=== PATIENT | female | born 1990 | race Caucasian/White ===

== ENCOUNTER 2017-04-19 06:18 | Inpatient (IN) | payer BC ==
[2017-04-19] MEDS ORDERED: Sodium Chloride 0.9% 10 ML Syringe FLUSH PRN (20:07)
[2017-04-19] MEDS ORDERED: Oxytocin/Lactated Ringers 10 UNIT/1,000 ML BAG IV SCH (20:15)
[2017-04-19] MEDS: Lactated Ringers 1,000 ML IV SCH ×2 (20:56→22:25)
[2017-04-19] MEDS ORDERED: ePHEDrine 50 MG/ML SDV IVPUSH PRN (21:55)
[2017-04-19] MEDS ORDERED: diphenhydrAMINE 50 MG/ML SDV IVPUSH PRN (21:55)
[2017-04-19] MEDS ORDERED: fentaNYL 100 MCG/2 ML SDV EPIDUR PRN (21:55)
[2017-04-19] MEDS: Bupivacaine/fentaNYL/NS 100 ML Bag EPIDUR SCH (22:36)
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
[2017-04-20] MEDS: Bupivacaine/fentaNYL/NS 100 ML Bag EPIDUR SCH (05:33)
[2017-04-20] MEDS: Lactated Ringers 1,000 ML IV SCH (05:46)
--- NOTE | 2017-04-20 06:38 | PCM.SN ---
- Free Text/Narrative Note: Tanya is a 26-year-old 2 now para 1102 female who was admitted last evening for induction of labor but was rebecca already at that time. Augmentation was performed with artificial rupture membranes. She progressed slowly throughout the night and became completely dilated at approximately 0300 hrs. on 04/20/2017. Patient pushed for approximately 2 hours and 15 minutes and delivered a viable's, lewis, female at 0618 hrs. scores were 5 and 8. Length was 21.0 inches. Weight was 3780 g (8 pounds 5.3 ounces). Cord was clamped 2 and cut by the patient's mother. Baby was placed in the warmer and was evaluated. The cord was noted to have 3 vessels and cord blood was obtained The placenta delivered in a Mckinnon presentation at 0622 hrs., appeared intact and complete. Pitocin had been started IV after delivery of the baby to facilitate increase in uterine tone and decrease bleeding. Assessment blood loss was approximately 200 mL. Condition: Good
[2017-04-20] MEDS ORDERED: Benzocaine/Menthol 20%-0.5% Spray 56 GM Canister TOP PRN (07:17)
[2017-04-20] MEDS ORDERED: Witch Hazel Medicated Pads 100/Jar TOP PRN (07:17)
[2017-04-20] MEDS ORDERED: Lanolin 100% Cream 7 GM Tube TOP PRN (07:17)
[2017-04-20] MEDS ORDERED: Acetaminophen 325 MG Tab PO PRN (07:17)
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
[2017-04-20] MEDS: Prenatal Multivitamin with Calcium/Folic Acid/Iron Tab PO SCH ×2 (10:17→10:39)
[2017-04-20] MEDS: Ibuprofen 600 MG Tab PO PRN ×3 (10:17→22:17)
[2017-04-20] MEDS: Docusate Sodium 100 MG Cap PO PRN ×2 (10:19→22:17)
[2017-04-20] MEDS: Benzocaine/Cetylpyridinium/Menthol Lozenge MUCMEM PRN ×3 (12:43→22:19)
--- NOTE | 2017-04-20 16:51 | PCM48HPAN ---
Post Anesthesia Note - EVALUATION WITHIN 48HRS OF ANESTHETIC Vital Signs in Normal Range: Yes Patient Participated in Evaluation: Yes Respiratory Function Stable: Yes Airway Patent: Yes Cardiovascular Function Stable: Yes Hydration Status Stable: Yes Pain Control Satisfactory: Yes Nausea and Vomiting Control Satisfactory: Yes Mental Status Recovered: Yes - COMMENTS/OBSERVATIONS Free Text/Narrative:: Patient denied any headaches or residual numbness or tingling to lower extremities. However, the patient did complain of back pain at the insertion site. instructed patient that this may take up to 2 months for it to resolve but usually is gone in about a week. Patient stated she had this same problem about a 6 years ago and it took about a year for the back pain to resolve. Other than that, patient had no other complaints.
[2017-04-20] MEDS ORDERED: Bupivacaine 0.25% 10 ML SDV ONE (22:22)
[2017-04-21] MEDS: Prenatal Multivitamin with Calcium/Folic Acid/Iron Tab PO SCH (11:51)
[2017-04-21] MEDS: Ibuprofen 600 MG Tab PO PRN ×2 (13:03→20:11)
--- NOTE | 2017-04-21 13:59 | PCM.SN ---
- Free Text/Narrative Note: Note: Subjective: - Normal amount of lochia - Actively walking, voiding, and breast feeding Objective: - VS: T 97.5, BP 111/59, P 98, O2 100% - Skin: pale, dry - Abdomen: uterus at umbilicus, firm and nontender - Extremities: nontender, minimal edema - Labs: significant for HGB 7.2 (down from 8.5) Assessment: - 26-year-old, now P0102, s/p vaginal delivery who has a low HGB but is otherwise doing well. Plan: - Routine care - Begin ferrous sulfate tablets - Plan to stay overnight
[2017-04-21] MEDS ORDERED: Pneumococcal Polyvalent-23 Vaccine 0.5 ML SDV IM ONE (14:41)
[2017-04-21] MEDS: Docusate Sodium 100 MG Cap PO PRN (20:11)
[2017-04-21] MEDS: Benzocaine/Cetylpyridinium/Menthol Lozenge MUCMEM PRN (20:14)
[2017-04-22 04:28] VITALS: BP 119/87
--- NOTE | 2017-04-22 05:29 | PCM.DCSUM1 ---
Discharge Summary - Hospital Course Free Text/Narrative:: Tanya is a 26-year-old 2 now para 1102 female who was admitted on 04/19/2017 for induction of labor but was rebecca already at that time. Augmentation was performed with artificial rupture membranes. She progressed slowly throughout the night and became completely dilated at approximately 0300 hrs. on 04/20/2017. Patient pushed for approximately 2 hours and 15 minutes and delivered a viable's, lewis, female at 0618 hrs. scores were 5 and 8. Length was 21.0 inches. Weight was 3780 g (8 pounds 5.3 ounces). Cord was clamped 2 and cut by the patient's mother. Baby was placed in the warmer and was evaluated. The cord was noted to have 3 vessels and cord blood was obtained The placenta delivered in a Mckinnon presentation at 0622 hrs., appeared intact and complete. Pitocin had been started IV after delivery of the baby to facilitate increase in uterine tone and decrease bleeding. Assessment blood loss was approximately 200 mL. patient has done very well. Hemoglobin pre-labor was found to be 8.8 and dropped to 7.2 after delivery. She is doing well with this however she is ambulating well, she is able take care of her baby without concerns. She is nursing without problems. Her flows minimal and her discomfort is manageable. The patient does have some concerns about depression/anxiety and would like to go back on her Prozac as she had been on prior to . She has some of this left and would be interested in going on the same dose which is 20 mg per day. She is given permission to do so. Discharge instructions given. - Discharge Data Discharge Date: 04/22/17 Discharge Disposition: Home, Self-Care 01 Condition: Good - Patient Instructions Diet: Regular Diet as Tolerated (Nursing diet was increased calories and calcium as recommended) Activity: As Tolerated (No intercourse or tampons until bleeding resolves) Driving: Do Not Drive (2 days then only if she feels safe doing so.) Showering/Bathing: May Shower Notify Provider of: Fever, Increased Pain, Swelling and Redness, Nausea and/or Vomiting - Discharge Plan Prescriptions/Med Rec: FLUoxetine [PROzac] 20 mg PO BEDTIME #30 cap Home Medications: Home Meds Melatonin 04/19/17 [History] PNV95/Ferrous Fumarate/FA [ Tablet] 04/19/17 [History] FLUoxetine [PROzac] 20 mg PO BEDTIME #30 cap 04/22/17 [Rx] Ibuprofen [IJD: Ibuprofen] 600 mg PO Q4H PRN #30 tablet 04/22/17 [Rx] Patient Handouts: Smoking Cessation, Tips for Success, [id number], Smoking Hazards Referrals: Eddie Bridges MD [Physician] - (Return to clinic-Dr. Bridges-[facility]) - Discharge Summary/Plan Comment DC Time >30 min.: No Discharge Summary/Plan Comment: Discharge instruction: 1. Discharge home 2. Regular, high fiber, nursing diet with increase calories and calcium as directed 3. Activity and follow-up discussed in detail with patient 4. Precautions given concern increased pain, bleeding, temperature, signs/ symptoms of DVT/PE, signs and symptoms of anemia. 5. Medications per home medication was printed, discussed with them given to patient. 6. Return to clinic-Dr. Bridges-6 weeks-[facility]. Diagnosis: 1. 38 week intrauterine -delivered 2. Anemia secondary to and blood loss at time of delivery Condition: Good - Patient Data Vitals - Most Recent: Last Vital Signs Temp 36.7 C 04/22/17 03:32 Pulse 111 H 04/22/17 03:32 Resp 16 04/21/17 19:52 BP 119/87 04/22/17 03:32 Pulse Ox 99 04/22/17 03:32 Weight - Most Recent: 88.314 kg I&O - Last 24 hours: Intake & Output 04/21/17 04/21/17 04/22/17 14:59 22:59 06:59 Intake Total 240 Balance 240 Lab Results - Last 24 hrs: Laboratory Results - last 24 hr 04/21/17 Range/Units 06:03 WBC 11.35 H (3.98-10.04) K/mm3 RBC 3.49 L (3.98-5.22) M/mm3 Hgb 7.2 L* (11.2-15.7) gm/L Hct 24.9 L (34.1-44.9) % MCV 71.3 L (79.4-94.8) fl MCH 20.6 L (25.6-32.2) pg MCHC 28.9 L (32.2-35.5) g/dl RDW Std Deviation 42.9 (36.4-46.3) fL Plt Count 229 (182-369) K/mm3 MPV 10.0 (9.4-12.3) fl Med Orders - Current: Current Medications Acetaminophen (Tylenol) 650 mg PO Q4H PRN PRN Reason: mild pain or fever Benzocaine/Menthol (Dermoplast Pain Relief [place]) 0 gm TOP ASDIRECTED PRN PRN Reason: Perineal Comfort Measure Last Admin: 04/20/17 10:16 Dose: 1 can Benzocaine/Menthol (Cepacol Sore Throat) 1 lozenge MUCMEM Q2HR PRN PRN Reason: Cough Last Admin: 04/21/17 20:14 Dose: 1 lozenge Docusate Sodium (Colace) 100 mg PO BID PRN PRN Reason: Constipation Last Admin: 04/21/17 20:11 Dose: 100 mg Emollient Ointment (Lansinoh Hpa) 0 gm TOP ASDIRECTED PRN PRN Reason: Sore Nipples Last Admin: 04/20/17 12:47 Dose: 1 tube Ibuprofen (Motrin) 600 mg PO Q4H PRN PRN Reason: Mild pain or fever Last Admin: 04/21/17 20:11 Dose: 600 mg Prenat Multivit/[place]/Iron/Folic Ac ( Plus Iron) 1 each PO DAILY PACO Last Admin: 04/21/17 11:51 Dose: Not Given Vicki Scarlet (Tucks) 1 pad TOP ASDIRECTED PRN PRN Reason: Hemorrhoid pain Last Admin: 04/20/17 10:16 Dose: 1 jar Discontinued Medications Diphenhydramine HCl (Benadryl) 25 mg IVPUSH Q6H PRN PRN Reason: pruritis Ephedrine Sulfate (Ephedrine Sulfate) 5 mg IVPUSH ASDIRECTED PRN PRN Reason: Hypotension Fentanyl (Sublimaze) 100 mcg EPIDUR Q3H PRN PRN Reason: Pain Last Admin: 04/19/17 22:36 Dose: 100 mcg Fentanyl/Bupivacaine HCl (Fentanyl/Bupivacaine/Ns 2 Mcg-0.125% 100 Ml) 100 ml EPIDUR ASDIRECTED PACO Last Admin: 04/20/17 05:33 Dose: 100 ml Lactated Ringer's (Ringers, Lactated) 1,000 mls @ 100 mls/hr IV ASDIRECTED PACO Last Admin: 04/20/17 05:46 Dose: 100 mls/hr Oxytocin/Lactated Ringer's (Pitocin In Lr 10 Units/1,000 Ml) 10 unit in 1,000 mls @ 500 mls/hr IV .CONTINUOUS PACO PRN Reason: Protocol Last Admin: 04/20/17 06:18 Dose: 500 ml/hr, 500 mls/hr Pneumococcal Polyvalent Vaccine (Pneumovax 23) 0.5 ml IM .ONCE ONE Stop: 04/21/17 14:42 Last Admin: 04/21/17 15:57 Dose: 0.5 ml Sodium Chloride (Saline Flush) 10 ml FLUSH ASDIRECTED PRN PRN Reason: Keep Vein Open *Q Meaningful Use (DIS) - VTE *Q VTE Criteria *Q: - Stroke *Q Stroke Criteria *Q: - AMI *Q AMI Criteria *Q:
[2017-04-22] MEDS: Ibuprofen 600 MG Tab PO PRN (08:37)
[2017-04-22] MEDS: Prenatal Multivitamin with Calcium/Folic Acid/Iron Tab PO SCH (08:37)
[2017-04-22] MEDS: Docusate Sodium 100 MG Cap PO PRN (08:40)
== END 2017-04-22 10:00 | disposition home or self-care (01) | DRG 560 ==
LOC: JD.OB 06:18 → OBSVTOIN 04-20 06:18 → JD.OB 04-20 06:18
PROVIDERS: ADMIT Obstetrics & Gynecology; ATTEND Obstetrics & Gynecology
PROC: 10E0XZZ Delivery of Products of Conception, External Approach (ICD-10-PCS; principal; 2017-04-20)
PROC: 10907ZC Drainage of Amniotic Fluid, Therapeutic from Products of Conception, Via Natural or Artificial Opening (ICD-10-PCS; 2017-04-20)
PROC: 00HU33Z Insertion of Infusion Device into Spinal Canal, Percutaneous Approach (ICD-10-PCS; 2017-04-20)
PROC: 3E0R3CZ (ICD-10-PCS; 2017-04-20)
DX: O99.344 Other mental disorders complicating childbirth (principal); O99.02 Anemia complicating childbirth; F41.9 Anxiety disorder, unspecified; F32.9 Major depressive disorder, single episode, unspecified; Z3A.40 40 weeks gestation of pregnancy; Z37.0 Single live birth; O98.52 Other viral diseases complicating childbirth; Z79.899 Other long term (current) drug therapy
CPT/HCPCS: 36415; 85025; 85027; 90732; A9270-GY; J2590; J3010; J7120

== ENCOUNTER 2017-11-21 10:13 | Emergency (ER) | payer BC ==
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
[2017-11-21 15:48] VITALS: BP 124/73
== END 2017-11-21 16:42 ==
LOC: JD.ED 10:13
DX: T42.1X2A Poisoning by iminostilbenes, intentional self-harm, initial encounter (principal); F31.89 Other bipolar disorder; J45.909 Unspecified asthma, uncomplicated; Z79.899 Other long term (current) drug therapy; Z87.891 Personal history of nicotine dependence
CPT/HCPCS: 36415; 80053; 80306; 84439; 84443; 84703; 85025; 99285; G0480; 93010

== ENCOUNTER 2020-02-17 03:45 | Emergency (ER) | payer SELFPAY ==
[2020-02-17 03:59] VITALS: BP 121/80; PULSE 90
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
--- NOTE | 2020-02-17 10:50 | CT ---
Addendum: Exam description was incorrect, following is the corrected sentence: Technique: Multiple axial sections were obtained through the brain. Intravenous contrast was not utilized. --- Addendum1 above dictated on [02/17/2020 20:45] by [Hill Baker Hilton J.] --- --- Addendum1 above signed on [02/17/2020 20:45] by [Hill Baker Hilton J.] --- --- Original report below dictated on [02/17/2020 10:45] by [Hill Baker Hilton J.] --- --- Original report below signed on [02/17/2020 10:47] by [Hill Baker Hilton J.] --- Head CT Technique: Multiple axial sections were obtained from above the dome of the diaphragm inferiorly through the pubic symphysis. Intravenous contrast was not utilized. Comparison: No prior intracranial imaging is available. Findings: Ventricles along with basal cisterns and sulci over the convexities are within normal limits for the patient's age. No abnormal parenchymal densities are seen. No evidence of intracranial hemorrhage. No midline shift or mass-effect is seen. Bone window settings were reviewed. Visualized mastoid sinuses and visualized paranasal sinuses are clear. No acute calvarial finding is seen. Impression: 1. Nothing acute is appreciated on noncontrast head CT exam. Diagnostic code #1 This report was dictated in MDT I agree with preliminary report from [facility], finalized on 02/17/20, 5:57 AM Central Daylight Time --- Addendum1 signed ---
--- NOTE | 2020-02-17 10:50 | CT ---
CT cervical spine Technique: Multiple axial sections were obtained from above C1 inferiorly to the mid T2 level. Reconstructed sagittal and coronal images were reviewed. Findings: Vertebral body heights and disc spaces are maintained. No bony central or bony neural foraminal stenosis is seen. Kyphosis is noted within the cervical spine which is most likely positional. No acute fracture or abnormal subluxation is seen.: Impression: 1. Nothing acute is appreciated on CT study of the cervical spine. Diagnostic code #1 This report was dictated in MDT I agree with preliminary report from [facility], finalized on 02/17/20, 5:54 AM Central Daylight Time
== END 2020-02-17 05:40 | disposition home or self-care (01) ==
LOC: JD.ED 03:45
DX: S16.1XXA Strain of muscle, fascia and tendon at neck level, initial encounter (principal); S00.93XA Contusion of unspecified part of head, initial encounter; F41.9 Anxiety disorder, unspecified; F31.9 Bipolar disorder, unspecified; Z87.891 Personal history of nicotine dependence; Z79.899 Other long term (current) drug therapy; W50.0XXA Accidental hit or strike by another person, initial encounter
CPT/HCPCS: 70450; 70450-26; 72125; 72125-26; 99282; 99284-25

== ENCOUNTER 2021-01-21 20:33 | Emergency (ER) | payer SELFPAY ==
[2021-01-21 20:46] VITALS: BP 112/83; PULSE 91
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
--- NOTE | 2021-01-22 07:41 | CR ---
Chest: 2 views of the chest were obtained. Comparison: No prior chest imaging is available. Heart size and mediastinum are within normal limits. Lungs are clear with no acute parenchymal change. Bony structures appear within normal limits for the patient's age. Impression: 1. Nothing acute is appreciated on 2 view chest x-ray. Diagnostic code #1
== END 2021-01-21 22:35 | disposition home or self-care (01) ==
LOC: JD.ED 20:33
DX: R07.2 Precordial pain (principal); R07.89 Other chest pain; E66.9 Obesity, unspecified; Z87.891 Personal history of nicotine dependence; Z68.32 Body mass index [BMI] 32.0-32.9, adult
CPT/HCPCS: 36415; 71046; 71046-26; 80053; 84484; 85007; 85027; 85379; 93005; 93010; 99283; 99285-25

== ENCOUNTER 2021-05-29 12:00 | Emergency (ER) | payer MEDICAID ==
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
[2021-05-29 13:31] VITALS: BP 141/90
[2021-05-29] MEDS ORDERED: FLU Vacc QS2021-22 36MOS UP/PF 60 MCG/0.5 ML Syringe IM ONE (13:45)
--- NOTE | 2021-05-29 15:22 | CR ---
Left ankle: 4 views of left ankle were obtained. Comparison: Prior left ankle exam of 02/20/16. Soft tissue swelling is noted laterally. Ankle mortise is symmetric. No fracture, dislocation or other bony abnormality is seen. Impression: 1. Soft tissue swelling. 2. No acute bony abnormality is appreciated on left ankle study. Diagnostic code #2
--- NOTE | 2021-05-29 15:23 | CR ---
Left foot: 2 views of the left foot were obtained. Comparison: No prior foot exam is available. Joint spaces are maintained. No acute fracture, dislocation or other bony abnormality is appreciated. Impression: 1. Nothing acute is seen on 2-view left foot exam. Diagnostic code #1
[2021-05-29 16:54] VITALS: PULSE 86
== END 2021-05-29 15:25 | disposition home or self-care (01) ==
LOC: JD.ED 12:00
DX: S93.412A Sprain of calcaneofibular ligament of left ankle, initial encounter (principal); S93.432A Sprain of tibiofibular ligament of left ankle, initial encounter; E66.9 Obesity, unspecified; Z68.32 Body mass index [BMI] 32.0-32.9, adult; Z23 Encounter for immunization; X50.1XXA Overexertion from prolonged static or awkward postures, initial encounter
CPT/HCPCS: 73610-26-LT; 73610-LT; 73620-26-LT; 73620-LT; 90686; 99283-25; G0008